=== PATIENT | female | born 1960 | race Caucasian/White ===

== ENCOUNTER 2021-01-13 10:31 | Outpatient (CLI) | payer MEDICARE, OTHER | END 2021-01-13 10:32 | disposition home or self-care (01) | LOC: TBSIIMAG 10:31 | PROVIDERS: ATTEND Surgery | DX: M47.26 Other spondylosis with radiculopathy, lumbar region (principal); M54.50 Low back pain, unspecified | CPT/HCPCS: 72120; 72148 ==

== ENCOUNTER 2021-02-07 14:47 | Outpatient (CLI) | payer MEDICARE, OTHER ==
[2021-02-07 17:21] LABS: Hemoglobin 12.7 g/dL (12.0-15.5); Mean Corpuscular HGB CONC 32.4 g/dL (32.0-36.0); Mean Corpuscular Hemoglobin 30.8 pg (27.0-33.0); Mean Corpuscular Volume 94.9 fl (81.6-98.3); Mean Platelet Volume 12.8 fl (7.4-10.4); Platelet Count 161 10x3/uL (150-450); RBC Distribution Width 13.5 % (11.5-14.5); Red Blood Cell (RBC) Count 4.13 10x6/uL (3.90-5.03); White Blood Cell (WBC) Count 9.5 10x3/uL (3.5-10.5)
[2021-02-07 17:26] LABS: Anion Gap 13 mmol/L (10-20); BUN (Urea Nitrogen) 12 mg/dL (9.8-20.1); Calc. Creatinine Clearance 0 mL/min (70-130); Calcium 8.9 mg/dL (7.8-10.44); Carbon Dioxide 29 mmol/L (23-31); Chloride 99 mmol/L (98-107); Glucose 106 mg/dL (80-115); Potassium 4.4 mmol/L (3.5-5.1); Sodium 137 mmol/L (136-145)
[2021-02-07 17:28] LABS: INR-International Normal Ratio 0.9; PTT 26.3 sec (22.0-33.0); Prothrombin Time 10.5 sec (9.5-12.1)
[2021-02-08 09:10] LABS: SARS-CoV-2 PCR by NAA DETECTED (NotDetected)
== END 2021-02-07 14:48 | disposition home or self-care (01) ==
LOC: LABBT 14:47
PROVIDERS: ATTEND Surgery
DX: Z01.812 Encounter for preprocedural laboratory examination (principal); M51.16 Intervertebral disc disorders with radiculopathy, lumbar region; U07.1 COVID-19
CPT/HCPCS: 80048; 85027; 85610; 85730; U0003; U0005; 93005; 93010

== ENCOUNTER 2021-03-17 15:18 | Outpatient (CLI) | payer MEDICARE, OTHER ==
[2021-03-17 16:26] LABS: Hemoglobin 12.8 g/dL (12.0-15.5); Mean Corpuscular Volume 93.7 fl (81.6-98.3); Mean Platelet Volume 11.7 fl (7.4-10.4); Platelet Count 244 10x3/uL (150-450); RBC Distribution Width 13.3 % (11.5-14.5); Red Blood Cell (RBC) Count 4.27 10x6/uL (3.90-5.03); White Blood Cell (WBC) Count 8.7 10x3/uL (3.5-10.5)
[2021-03-17 17:01] LABS: PTT 25.2 sec (22.0-33.0); Prothrombin Time 10.6 sec (9.5-12.1)
[2021-03-17 17:04] LABS: Anion Gap 14 mmol/L (10-20); BUN (Urea Nitrogen) 7 mg/dL (9.8-20.1); Calc. Creatinine Clearance 0 mL/min (70-130); Calcium 9.3 mg/dL (7.8-10.44); Carbon Dioxide 28 mmol/L (23-31); Chloride 104 mmol/L (98-107); Glucose 85 mg/dL (80-115); Potassium 3.7 mmol/L (3.5-5.1); Sodium 142 mmol/L (136-145)
== END 2021-03-17 15:19 | disposition home or self-care (01) ==
LOC: LABBT 15:18
PROVIDERS: ATTEND Surgery
DX: Z01.818 Encounter for other preprocedural examination (principal); M51.16 Intervertebral disc disorders with radiculopathy, lumbar region
CPT/HCPCS: 80048; 85027; 85610; 85730; 93005; 93010

== ENCOUNTER 2021-03-18 12:09 | Outpatient (CLI) | payer MEDICARE, OTHER | END 2021-03-18 12:10 | disposition home or self-care (01) | LOC: BICRAD 12:09 | PROVIDERS: ATTEND Surgery | DX: M54.6 Pain in thoracic spine (principal); M47.814 Spondylosis without myelopathy or radiculopathy, thoracic region | CPT/HCPCS: 72072 ==

== ENCOUNTER 2021-03-22 06:22 | Observation (INO) | payer MEDICARE, OTHER ==
[2021-03-22] MEDS ORDERED: Thrombin 5000 UNITS/5 ML VIAL ONE (06:36)
[2021-03-22] MEDS ORDERED: Clindamycin/D5W 900 mg/50 ml Premix Bag ONE (07:00)
[2021-03-22] MEDS ORDERED: Levofloxacin 500 mg/D5W 100 ml Premix Bag ONE (07:00)
[2021-03-22] MEDS ORDERED: Fentanyl 100 MCG/2 ML VIAL ONE ×2 (07:09→10:48)
[2021-03-22] MEDS ORDERED: Midazolam HCl 2 mg/2 ml Vial ONE (07:22)
[2021-03-22] MEDS ORDERED: Lidocaine 2% Jelly 5 ML TUBE ONE (07:37)
[2021-03-22] MEDS ORDERED: PROPOFOL 200 MG/20 ML VIAL ONE (07:44)
[2021-03-22] MEDS ORDERED: Dexamethasone 20 MG/5 ML VIAL ONE (07:44)
[2021-03-22] MEDS ORDERED: Lidocaine 1% PF 5 ML VIAL ONE (07:44)
[2021-03-22] MEDS ORDERED: Rocuronium Bromide 10 MG/ML (10ML VIAL) ONE (07:44)
[2021-03-22] MEDS ORDERED: ePHEDrine 50 MG/ML VIAL ONE (07:44)
[2021-03-22] MEDS ORDERED: Phenylephrine 10 MG/ML VIAL ONE (07:44)
[2021-03-22] MEDS ORDERED: Ketorolac Tromethamine 30 MG/ML VIAL ONE (07:44)
[2021-03-22] MEDS ORDERED: Ondansetron PF 4 MG/2 ML Vial ONE (07:44)
[2021-03-22] MEDS ORDERED: Glycopyrrolate 0.2 MG/ML 5 ML SYRINGE ONE (07:44)
[2021-03-22] MEDS ORDERED: Promethazine HCl 25 MG/ML VIAL IVPB PRN (10:10)
[2021-03-22] MEDS ORDERED: Promethazine HCl 25 MG/ML VIAL IM PRN (10:10)
[2021-03-22] MEDS ORDERED: Ondansetron HCl/PF 4 MG/2 ML Vial IVP PRN (10:10)
[2021-03-22] MEDS ORDERED: Acetaminophen 325 MG TAB PO PRN (10:12)
[2021-03-22] MEDS ORDERED: traMADol HCl 50 MG TAB PO PRN ×2 (10:12)
[2021-03-22] MEDS ORDERED: tiZANidine HCl 4 MG TAB PO PRN (10:16)
[2021-03-22] MEDS ORDERED: Furosemide 40 MG TAB PO PRN (10:17)
[2021-03-22] MEDS ORDERED: Cyclobenzaprine 10 MG TAB PO PRN (10:17)
[2021-03-22] MEDS: Sodium Chloride 0.9% 1,000 ML IV SCH ×2 (14:35→23:33)
[2021-03-22] MEDS: Morphine 4 MG/ML VIAL SLOW IVP PRN ×2 (14:35→20:48)
[2021-03-22 15:52] VITALS: BMI 31.4
[2021-03-22] MEDS: metFORMIN 500 MG TAB PO SCH (17:04)
[2021-03-22] MEDS: Clindamycin/D5W 900 MG in Premix Bag 1 BAG IVPB SCH (17:06)
[2021-03-22] MEDS: ALPRAZolam 0.5 MG TAB PO PRN (20:48)
[2021-03-22] MEDS ORDERED: Prazosin HCl 1 MG CAP PO SCH (21:00)
[2021-03-22] MEDS ORDERED: Atorvastatin Calcium 10 MG TAB PO SCH (21:00)
[2021-03-22] MEDS ORDERED: Mirtazapine 30 MG Soltab PO SCH (21:00)
[2021-03-23] MEDS: Morphine 4 MG/ML VIAL SLOW IVP PRN (00:20)
[2021-03-23] MEDS: Clindamycin/D5W 900 MG in Premix Bag 1 BAG IVPB SCH (00:21)
[2021-03-23] MEDS: HYDROcodone/Acetaminophen 7.5/325 mg Tablet PO PRN ×2 (05:55→11:54)
[2021-03-23] MEDS: ALPRAZolam 0.5 MG TAB PO PRN (07:26)
[2021-03-23] MEDS ORDERED: Oxybutynin 5 MG TAB PO SCH (09:00)
[2021-03-23] MEDS ORDERED: Bupropion 150 MG XL TAB PO SCH (09:00)
[2021-03-23] MEDS ORDERED: Metoprolol Tartrate 25 MG TAB PO SCH (09:00)
[2021-03-23] MEDS ORDERED: CeleCOXIB 100 MG CAP PO SCH (09:00)
[2021-03-23] MEDS ORDERED: Aripiprazole 15 MG TAB PO SCH (09:00)
[2021-03-23] MEDS ORDERED: Multivit, Therapeutic 1 TAB PO SCH (09:00)
[2021-03-23] MEDS ORDERED: Stress 600 With Zinc 1 TAB PO SCH (09:00)
[2021-03-23] MEDS ORDERED: Amlodipine 5 MG TAB PO SCH (09:00)
[2021-03-23] MEDS ORDERED: Estradiol 1 MG TAB PO SCH (09:00)
[2021-03-23] MEDS ORDERED: Losartan 25 MG TAB PO SCH (09:00)
[2021-03-23] MEDS: metFORMIN 500 MG TAB PO SCH (09:50)
[2021-03-23] MEDS: Folic Acid 1 MG TAB PO SCH ×2 (09:51)
[2021-03-23 12:46] VITALS: BP 178/73; TEMP 97.7
== END 2021-03-23 13:21 | disposition home or self-care (01) ==
LOC: SDC 06:22 → MSONC 10:18
PROVIDERS: ADMIT Surgery; ATTEND Surgery
PROC: 01NB0ZZ Release Lumbar Nerve, Open Approach (ICD-10-PCS; principal; 2021-03-22)
PROC: 0SB20ZZ Excision of Lumbar Vertebral Disc, Open Approach (ICD-10-PCS; 2021-03-22)
DX: M51.16 Intervertebral disc disorders with radiculopathy, lumbar region (principal); M48.061 Spinal stenosis, lumbar region without neurogenic claudication; I10 Essential (primary) hypertension; E78.5 Hyperlipidemia, unspecified; J44.9 Chronic obstructive pulmonary disease, unspecified; M06.9 Rheumatoid arthritis, unspecified; F17.200 Nicotine dependence, unspecified, uncomplicated; Z86.14 Personal history of Methicillin resistant Staphylococcus aureus infection; Z79.84 Long term (current) use of oral hypoglycemic drugs; Z79.899 Other long term (current) drug therapy; Z88.0 Allergy status to penicillin; Z88.2 Allergy status to sulfonamides; Z88.5 Allergy status to narcotic agent; Z91.030 Bee allergy status; Z91.038 Other insect allergy status
CPT/HCPCS: 76000; 96365; 96366; 96375; 96376; G0378; J1100; J1885; J1956; J2250; J2270; J2370; J2405; J2704; J3010; J3370; J3490; J7050